=== PATIENT | male | born 1970 | race Caucasian/White ===

== ENCOUNTER 2016-11-20 19:17 | Outpatient (CLI) | END 2016-11-20 19:18 | disposition home or self-care (01) | LOC: AMBL 19:17 | PROVIDERS: ATTEND Emergency Medicine | DX: S61.511A Laceration without foreign body of right wrist, initial encounter (principal); S61.219A Laceration without foreign body of unspecified finger without damage to nail, initial encounter; W19.XXXA Unspecified fall, initial encounter ==